=== PATIENT | female | born 1960 | race Caucasian/White ===

== ENCOUNTER 2020-09-25 09:35 | Emergency (ER) | payer OTHER ==
[2020-09-25 09:43] VITALS: BP 130/80; PULSE 85; TEMP 98.9; BMI 26.6
[2020-09-25] MEDS ORDERED: ACETAMINOPHEN 500 MG TABLET (FP) PO ONE (09:58)
[2020-09-25] MEDS ORDERED: ACETAMINOPHEN 500 MG TABLET (FP) ONE (10:09)
== END 2020-09-25 11:25 | disposition home or self-care (01) ==
LOC: FER 09:35
DX: U07.1 COVID-19 (principal); R05 Cough
CPT/HCPCS: 71045-TC-FY; 87804; 99284-25; C9803; Q9967; U0003